=== PATIENT | female | born 1965 | race Caucasian/White ===

== ENCOUNTER 2019-02-18 10:10 | Emergency (ER) | payer MEDICAID ==
[~2019-02-18] VITALS: Ht 157.5 cm; Wt 90.7 kg
[2019-02-18 10:43] VITALS: BP_SYST 159
[2019-02-18 12:33] VITALS: BP_SYST 148
== END 2019-02-18 12:33 | disposition home or self-care (01) ==
LOC: SED 10:10
DX: S82.891A Other fracture of right lower leg, initial encounter for closed fracture (principal); M54.5 Low back pain; I10 Essential (primary) hypertension; E78.00 Pure hypercholesterolemia, unspecified; W19.XXXA Unspecified fall, initial encounter; Y93.89 Activity, other specified; Y99.8 Other external cause status; Y92.89 Other specified places as the place of occurrence of the external cause
CPT/HCPCS: 72100-TC; 99283

== ENCOUNTER 2019-02-26 21:52 | Inpatient (IN) | payer MEDICAID ==
[~2019-02-26] VITALS: Ht 162.6 cm; Wt 91.8 kg
[2019-02-26 22:06] VITALS: BP_SYST 161
[2019-02-26] MEDS ORDERED: MORPHINE 2 MG/ML INJ. SYRINGE IVP ONE (22:45)
[2019-02-26] MEDS ORDERED: NACL 0.9% 1,000 ML IV ONE (22:45)
[2019-02-26] MEDS ORDERED: ONDANSETRON HCL 4 MG/2 ML VIAL IVP ONE (22:45)
[2019-02-26 23:30] LABS: BASOPHILS % (AUTO) 0.7 % (0.0-2.0); EOSINOPHILS % (AUTO) 0.4 % (0.0-4.0); HEMATOCRIT 39.2 % (36-48); HEMOGLOBIN 13.4 g/dL (12.0-16.0); LYMPHOCYTES # (AUTO) 1.5 K/uL (1.0-5.5); LYMPHOCYTES % (AUTO) 20.5 % (20.5-51.5); MEAN CORPUSCULAR HEMOGLOBIN 32 pg (27-31); MEAN CORPUSCULAR HGB CONC 34 % (32-36); MEAN CORPUSCULAR VOLUME 94 fL (79.0-98.0); MONOCYTES # (AUTO) 0.4 K/uL (0.0-1.0); MONOCYTES % (AUTO) 5.2 % (1.7-9.3); NEUTROPHILS # (AUTO) 5.3 K/uL (1.8-7.7); NEUTROPHILS % (AUTO) 73.2 % (40.0-70.0); PLATELET COUNT (AUTO) 249 K/uL (130-430); RED BLOOD CELL COUNT(AUTO) 4.15 MIL/uL (4.2-6.2); RED CELL DISTRIBUTION WIDTH 13.2 % (9.0-15.0); WHITE BLOOD COUNT (AUTO) 7.2 K/uL (4.8-10.8)
[2019-02-26 23:45] LABS: CALCIUM 9.1 mg/dL (8.4-11.0); CREATININE 0.88 mg/dL (0.55-1.30); POTASSIUM 3.8 mmol/L (3.5-5.1)
[2019-02-26] MEDS ORDERED: PIPERACILLIN/TAZO 3.375 GM in NS 50 ML IV ONE (23:45)
[2019-02-26 23:49] LABS: PROTHROMBIN TIME 10.4 SECS (9.5-12.5)
[2019-02-26 23:58] LABS: ALBUMIN 3.5 g/dL (3.4-4.8); TOTAL BILIRUBIN 0.7 mg/dL (0.0-1.0)
[2019-02-27] VITALS (7 sets, daily range): BP systolic 120–148
[2019-02-27 00:18] LABS: BILIRUBIN,URINE NEGATIVE (NEGATIVE); BLOOD, URINE NEGATIVE (NEGATIVE); CLARITY/URINE CLEAR (CLEAR); COLOR,URINE YELLOW (YELLOW); GLUCOSE,URINE NEGATIVE (NEGATIVE); KETONES,URINE NEGATIVE (NEGATIVE); LEUKOCYTE ESTERASE ,URINE 3+ (NEGATIVE); NITRITE, URINE NEGATIVE (NEGATIVE); PH,URINE 8.5 (5.0-8.0); PROTEIN URINE NEGATIVE (NEGATIVE)
[2019-02-27] MEDS ORDERED: PIPERACILLIN/TAZOBACTAM 3.375 GM/VIAL (ZOSYN) IV ONE (00:20)
[2019-02-27 00:23] LABS: BACTERIA,URINE MANY /HPF (None Seen); RBC,URINE 0-3 /HPF (0-3)
[2019-02-27] MEDS ORDERED: ONDANSETRON HCL 4 MG/2 ML VIAL IVP PRN (01:00)
[2019-02-27] MEDS ORDERED: MORPHINE 2 MG/ML INJ. SYRINGE IVP PRN (01:00)
[2019-02-27] MEDS: metroNIDAZOLE 500 mg/NS 100 ML IV SCH ×3 (02:17→17:06)
[2019-02-27] MEDS: KCL 20 mEq in D5/0.45NS 1000mL 1,000 ML IV SCH ×2 (02:17→20:11)
[2019-02-27] MEDS ORDERED: KCL 20 mEq in D5/0.45NS 1000mL 1,000 ML IV ONE (02:22)
[2019-02-27] MEDS ORDERED: metroNIDAZOLE 500 mg/NS 100 ML IV ONE (02:22)
[2019-02-27] MEDS: PANTOPRAZOLE SODIUM 40 MG/VIAL (PROTONIX) IVP SCH (08:22)
[2019-02-27] MEDS: ENOXAPARIN SODIUM 40 MG/0.4 ML SYRINGE SUBCUT SCH (20:17)
[2019-02-28] MEDS: metroNIDAZOLE 500 mg/NS 100 ML IV SCH ×3 (00:32→16:39)
[2019-02-28] MEDS: KCL 20 mEq in D5/0.45NS 1000mL 1,000 ML IV SCH ×2 (03:40→10:16)
[2019-02-28 07:53] VITALS: BP_SYST 142
[2019-02-28] MEDS: PANTOPRAZOLE SODIUM 40 MG/VIAL (PROTONIX) IVP SCH (08:29)
[2019-02-28 12:40] VITALS: BP_SYST 141
[2019-02-28] MEDS ORDERED: amLODIPine BESYLATE 10 MG TABLET PO ONE (16:30)
[2019-02-28 16:45] VITALS: BP_SYST 160
[2019-02-28 20:00] VITALS: BP_SYST 133
[2019-02-28] MEDS: ENOXAPARIN SODIUM 40 MG/0.4 ML SYRINGE SUBCUT SCH (21:00)
[2019-03-01] MEDS: KCL 20 mEq in D5/0.45NS 1000mL 1,000 ML IV SCH ×3 (03:24→16:37)
[2019-03-01] MEDS: metroNIDAZOLE 500 mg/NS 100 ML IV SCH ×3 (03:26→16:36)
[2019-03-01 06:24] VITALS: BP_SYST 123
[2019-03-01 08:00] VITALS: BP_SYST 123
[2019-03-01] MEDS: PANTOPRAZOLE SODIUM 40 MG/VIAL (PROTONIX) IVP SCH (08:25)
[2019-03-01] MEDS: amLODIPine BESYLATE 10 MG TABLET PO SCH (08:26)
[2019-03-01 12:30] VITALS: BP_SYST 130
[2019-03-01 16:30] VITALS: BP_SYST 133
[2019-03-01 20:30] VITALS: BP_SYST 159
[2019-03-01] MEDS: ENOXAPARIN SODIUM 40 MG/0.4 ML SYRINGE SUBCUT SCH (20:33)
[2019-03-02 00:32] VITALS: BP_SYST 142
[2019-03-02] MEDS: metroNIDAZOLE 500 mg/NS 100 ML IV SCH ×2 (00:55→08:44)
[2019-03-02 06:33] LABS: BASOPHILS % (AUTO) 0.3 % (0.0-2.0); EOSINOPHILS % (AUTO) 0.7 % (0.0-4.0); HEMATOCRIT 38.4 % (36-48); HEMOGLOBIN 12.9 g/dL (12.0-16.0); LYMPHOCYTES # (AUTO) 2.2 K/uL (1.0-5.5); LYMPHOCYTES % (AUTO) 35.1 % (20.5-51.5); MEAN CORPUSCULAR HEMOGLOBIN 32 pg (27-31); MEAN CORPUSCULAR HGB CONC 34 % (32-36); MEAN CORPUSCULAR VOLUME 95 fL (79.0-98.0); MONOCYTES # (AUTO) 0.3 K/uL (0.0-1.0); MONOCYTES % (AUTO) 5.3 % (1.7-9.3); NEUTROPHILS # (AUTO) 3.7 K/uL (1.8-7.7); NEUTROPHILS % (AUTO) 58.6 % (40.0-70.0); PLATELET COUNT (AUTO) 246 K/uL (130-430); RED BLOOD CELL COUNT(AUTO) 4.03 MIL/uL (4.2-6.2); RED CELL DISTRIBUTION WIDTH 13.1 % (9.0-15.0); WHITE BLOOD COUNT (AUTO) 6.3 K/uL (4.8-10.8)
[2019-03-02 07:30] LABS: ALBUMIN 3.1 g/dL (3.4-4.8); CALCIUM 8.9 mg/dL (8.4-11.0); TOTAL BILIRUBIN 0.4 mg/dL (0.0-1.0)
[2019-03-02 07:44] LABS: CREATININE 0.74 mg/dL (0.55-1.30); POTASSIUM 3.9 mmol/L (3.5-5.1)
[2019-03-02] MEDS: amLODIPine BESYLATE 10 MG TABLET PO SCH (08:44)
[2019-03-02] MEDS: PANTOPRAZOLE SODIUM 40 MG/VIAL (PROTONIX) IVP SCH (08:45)
[2019-03-02 08:51] VITALS: BP_SYST 135
[2019-03-02] MEDS: KCL 20 mEq in D5/0.45NS 1000mL 1,000 ML IV SCH (10:40)
[2019-03-02 13:54] VITALS: BP_SYST 128
[2019-03-02 14:04] VITALS: BP_SYST 128
== END 2019-03-02 15:10 | disposition home or self-care (01) ==
LOC: SED 21:52 → SMU 02-27 00:57
PROVIDERS: ADMIT Family Medicine; ATTEND Family Medicine
DX: K80.10 Calculus of gallbladder with chronic cholecystitis without obstruction (principal); E78.00 Pure hypercholesterolemia, unspecified; I10 Essential (primary) hypertension; N39.0 Urinary tract infection, site not specified; R74.0 Nonspecific elevation of levels of transaminase and lactic acid dehydrogenase [LDH]; Z79.899 Other long term (current) drug therapy
CPT/HCPCS: 36415; 71045; 76700-TC; 78226; 80053; 81000-TC; 83690-TC; 84484; 84702-TC; 85025; 85610-TC; 85730-TC; 87040-TC; 87081; 87086; 93005; 96361; 96365; 96375; 99285; A9537; C9113; J1650; J1956; J2270; J2405; J2543; J3490

== ENCOUNTER 2020-11-27 22:03 | Emergency (ER) | payer MEDICAID ==
[~2020-11-27] VITALS: Ht 160 cm; Wt 95.3 kg
[2020-11-27 22:27] VITALS: BP_SYST 190
--- NOTE | 2020-11-27 22:32 | NUR ---
Patient triaged and placed in waiting room. VS monitored, BP elevated, patient appears in no acute distress at this time. Accompanied by self , awaiting available bed, and MD notified of need for MSE.
--- NOTE | 2020-11-27 23:30 | NUR ---
Placed in room 3. Placed on radiation monitor, blood pressure machine and pulse oximeter. To gown for exam. Side rails up. Report given to self. introduced self to patient, positioned for comfort and safety w/ bed to low position sr up. b/p noted to be elevated but patient is asymptomatic (did not take her b/p medications tonite).
[2020-11-28] MEDS ORDERED: NACL 0.9% 1,000 ML IV SCH
[2020-11-28] MEDS ORDERED: LABETALOL 100 MG/ 20ML VIAL IVP ONE (00:15)
[2020-11-28 00:27] LABS: BASOPHILS % (AUTO) 0.5 % (0.0-2.0); EOSINOPHILS # (AUTO) 0.1 K/uL (0.0-0.4); EOSINOPHILS % (AUTO) 1.1 % (0.0-4.0); HEMATOCRIT 39.8 % (36-48); HEMOGLOBIN 13.5 g/dL (12.0-16.0); LYMPHOCYTES # (AUTO) 2.7 K/uL (1.0-5.5); MEAN CORPUSCULAR HEMOGLOBIN 31 pg (27-31); MEAN CORPUSCULAR HGB CONC 34 % (32-36); MEAN CORPUSCULAR VOLUME 92 fL (79.0-98.0); MONOCYTES # (AUTO) 0.4 K/uL (0.0-1.0); MONOCYTES % (AUTO) 5.1 % (1.7-9.3); NEUTROPHILS # (AUTO) 5.4 K/uL (1.8-7.7); NEUTROPHILS % (AUTO) 62.3 % (40.0-70.0); PLATELET COUNT (AUTO) 252 K/uL (130-430); RED BLOOD CELL COUNT(AUTO) 4.31 MIL/uL (4.2-6.2); RED CELL DISTRIBUTION WIDTH 12.8 % (9.0-15.0); WHITE BLOOD COUNT (AUTO) 8.8 K/uL (4.8-10.8)
--- NOTE | 2020-11-28 00:31 | NUR ---
# 20 gauge angiocath placed to RAC. Use of asceptic technique. Opsite placed over site. Blood return noted. Flushed with 10 cc of normal saline. No evidence of infiltration noted. Patient tolerated well. Medicated per MD orders. IVF infusing with no s/s of infiltration at this time. Will cont to monitor and observe for any adverse reaction. Bed to low position sr up, continue to monitor.
[2020-11-28 00:46] LABS: CREATININE 0.78 mg/dL (0.55-1.30); POTASSIUM 3.6 mmol/L (3.5-5.1)
[2020-11-28 00:52] LABS: ALBUMIN 3.6 g/dL (3.4-4.8); TOTAL BILIRUBIN 0.4 mg/dL (0.0-1.0)
--- NOTE | 2020-11-28 01:02 | NUR ---
No adverse reaction noted to medication, B/P decreased to 158/95. Continue to monitor.
[2020-11-28] MEDS ORDERED: cloNIDine HCL 0.1 MG TABLET PO ONE (02:00)
[2020-11-28] MEDS ORDERED: DOCU250C14 PO (02:01)
[2020-11-28] MEDS ORDERED: ANURH RC (02:01)
--- NOTE | 2020-11-28 02:12 | NUR ---
Patient given written and verbal discharge instructions and verbalizes understanding. DR. BRAULIO LOPEZ MD discussed with patient the results and treatment provided. Patient in stable condition. ID arm band removed. Rx PER MD. Patient educated on pain management and to follow up with PMD. Pain Scale 0/10. Opportunity for questions provided and answered. Medication side effect fact sheet provided.
--- NOTE | 2020-11-28 02:12 | NUR ---
Administered Clonidine per MD order. Pt tolerated well. Dr. Mai aware of current BP.
[2020-11-28 02:13] VITALS: BP_SYST 186
== END 2020-11-28 02:12 | disposition home or self-care (01) ==
LOC: SED 22:03 → EDBD 22:03 → SED 11-28 02:12
DX: K62.89 Other specified diseases of anus and rectum (principal); I10 Essential (primary) hypertension; E78.00 Pure hypercholesterolemia, unspecified; Z79.899 Other long term (current) drug therapy
CPT/HCPCS: 36415; 71045; 80053; 85025; 86901; 93005; 96361; 96374; 99285; J3490; J7030